=== PATIENT | female | born 1985 | race Caucasian/White ===

== ENCOUNTER 2017-05-07 15:13 | Observation (INO) | payer BC, OTHER ==
[~2017-05-07] VITALS: Ht 170.2 cm; Wt 117.9 kg
[~2017-05-07 15:13] MED LIST: ACET325T14 PO; IBUP-1222 PO; OXYC-302 PO; PREN1TAB27 PO
[2017-05-07 16:06] LABS: BLOOD UREA NITROGEN 12 mg/dL (7-18)
[2017-05-07 17:03] LABS: PATH.CAST-FLAG NOT PRESENT; SPERM-FLAG NOT PRESENT; SRC-FLAG NOT PRESENT; XTAL-FLAG NOT PRESENT; YLC-FLAG NOT PRESENT
[2017-05-07] MEDS ORDERED: SODIUM CHLORIDE 0.9% 1,000 ML IV ONE (17:13)
[2017-05-07] MEDS ORDERED: SODIUM CHLORIDE FLUSH 10ML SYR IVF ONE (17:30)
[2017-05-07] MEDS ORDERED: BUPIVACAINE/PF-EPI 0.25% 1:200K ONE (18:15)
[2017-05-07 18:25] VITALS: BP 129/89
[2017-05-07] MEDS ORDERED: MIDAZOLAM 1 MG/ML, 2ML ONE (18:42)
[2017-05-07] MEDS ORDERED: FENTANYL PF 250 MCG/5ML ONE (18:42)
[2017-05-07] MEDS ORDERED: SUCCINYLCHOLINE 20 MG/ML, 10ML ONE (18:50)
[2017-05-07] MEDS ORDERED: GLYCOPYRROLATE 0.2MG/1ML ONE (18:50)
[2017-05-07] MEDS ORDERED: PROPOFOL 10 MG/ML, 20ML ONE (18:50)
[2017-05-07] MEDS ORDERED: ROCURONIUM 10 MG/ML ONE (18:50)
[2017-05-07] MEDS ORDERED: ONDANSETRON 2MG/ML, 2ML ONE (18:50)
[2017-05-07] MEDS ORDERED: CEFAZOLIN 1,000 MG ONE (18:50)
[2017-05-07] MEDS ORDERED: NEOSTIGMINE 1 MG/ML, 10ML ONE (18:50)
[2017-05-07] MEDS ORDERED: DEXAMETHASONE 4 MG/ML, 1ML ONE (18:50)
[2017-05-07] MEDS ORDERED: KETOROLAC 30 MG/1 ML ONE (18:50)
[2017-05-07] MEDS ORDERED: ALBUTEROL SULFATE 2.5 MG/3 ML NPPB PRN (19:30)
[2017-05-07] MEDS ORDERED: ONDANSETRON 2MG/ML, 2ML IVPush PRN ×2 (19:30→20:30)
[2017-05-07] MEDS ORDERED: PROMETHAZINE 25 MG/ML, 1ML IV PRN ×2 (19:30→20:30)
[2017-05-07] MEDS ORDERED: HYDROmorphone 1 MG/ML, 1ML IV PRN ×2 (19:30→20:30)
[2017-05-07] MEDS ORDERED: hydrALAzine 20 MG/ML, 1ML IV PRN ×2 (19:30→20:30)
[2017-05-07] MEDS ORDERED: OXYcodone 5 MG/5 ML ORAL.SOL UDC PO PRN ×2 (19:30→20:30)
[2017-05-07] MEDS ORDERED: ACETAMINOPHEN 325 MG TABLET PO PRN ×2 (19:30→20:30)
[2017-05-07] MEDS ORDERED: MEPERIDINE/PF 25MG/0.5ML IVPush PRN ×2 (19:30→20:30)
[2017-05-07] MEDS ORDERED: EPHEDRINE 50 MG/ML, 1ML IVPush PRN ×2 (19:30→20:30)
[2017-05-07] MEDS ORDERED: MIDAZOLAM 1 MG/ML, 2ML IV PRN ×2 (19:30→20:30)
[2017-05-07] MEDS ORDERED: FENTANYL PF 100 MCG/2ML IV PRN ×2 (19:30→20:30)
[2017-05-07] MEDS ORDERED: LABETALOL 5MG/ML, 20ML IV PRN ×2 (19:30→20:30)
[2017-05-07] MEDS ORDERED: METOPROLOL 1 MG/ML, 5ML IV PRN ×2 (19:30→20:30)
[2017-05-07] MEDS ORDERED: OXYcodone 5 MG/5 ML ORAL.SOL UDC ONE (20:28)
[2017-05-07] MEDS ORDERED: ACETAMINOPHEN 325 MG TABLET ONE (20:28)
[2017-05-07] MEDS ORDERED: ACETAMINOPHEN 650 MG/20.3 ML UDC ONE (20:28)
[2017-05-07] MEDS ORDERED: OXYC-302 PO (22:17)
[2017-05-07] MEDS ORDERED: IBUP200T48 PO (22:19)
[2017-05-07] MEDS ORDERED: morphine SULFATE 10 MG/ML, 1ML IV PRN (22:30)
[2017-05-07] MEDS ORDERED: ONDANSETRON 2MG/ML, 2ML IV PRN (22:30)
[2017-05-07] MEDS ORDERED: HYDROcodone/APAP 7.5-325MG/15ML UDC PO PRN (22:30)
== END 2017-05-07 23:45 | disposition home or self-care (01) ==
LOC: ED 16:12 → EDIP 18:06 → 4NOR 21:35
PROVIDERS: ADMIT Obstetrics & Gynecology; ATTEND Obstetrics & Gynecology
DX: O00.10 Tubal pregnancy without intrauterine pregnancy (principal); R10.32 Left lower quadrant pain; N89.8 Other specified noninflammatory disorders of vagina
CPT/HCPCS: 36415; 59151; 76830; 80048; 81001; 82040; 84702; 84703; 85025; 86850; 86900; 88305; 99291; G0378; J0330; J0690; J1100; J1885; J2250; J2405; J2704; J2710; J3010; J7030; J3490